=== PATIENT | male | born 1985 | race American Indian/Alaskan Native ===

== ENCOUNTER 2017-08-23 18:35 | Emergency (ER) | payer OTHER ==
--- NOTE | 2017-08-23 22:02 | XRay Report ---
FINAL REPORT PROCEDURE: XR HAND 3+V LT TECHNIQUE: Three views of the left hand are obtained HISTORY: left pinky finger injury with dislocation, poss fx COMPARISON: No prior studies are available for comparison. FINDINGS: No fracture or dislocation is seen. No arthritic changes are seen. Mild soft tissue swelling is seen. IMPRESSION: No fracture is seen.
--- NOTE | 2017-08-23 22:12 | Emergency Department Report ---
ED Upper Extremity Inj HPI - General Chief Complaint: Extremity Injury, Upper Stated Complaint: LEFT HAND PINKY FINGER DISLOCA Time Seen by Provider: 08/23/17 22:04 Source: patient Mode of arrival: Ambulatory Limitations: No Limitations - History of Present Illness Complaint: Injury to:: left (4TH DIGIT PROXIMAL MCP JOINT DISLCATION), finger (LEFT 4TH DIGIT) -: Sudden, hour(s) (FFEW) Other Extremity Injury: Fingers: Left (4TH) Other Injuries: none Severity scale (0 -10): 9 Improves With: immobilization Worsens With: movement of extremity Context: direct blow (WHILE PLAYING BASKETBALL) Associated Symptoms: other (PAIN) Treatments Prior to Arrival: NSAIDS (MOTRIN 400MG PO AT THE [facility]) - Related Data Allergies Allergy/AdvReac Type Severity Reaction Status Date / Time No Known Allergies Allergy Unverified 08/23/17 18:45 ED Review of Systems ROS: Stated complaint: LEFT HAND PINKY FINGER DISLOCA Other details as noted in HPI Constitutional: denies: chills, fever Eyes: denies: eye pain, eye discharge, vision change ENT: denies: ear pain, throat pain Respiratory: denies: cough, shortness of breath, wheezing Cardiovascular: denies: chest pain, palpitations Endocrine: no symptoms reported Gastrointestinal: denies: abdominal pain, nausea, diarrhea Genitourinary: denies: urgency, dysuria Musculoskeletal: denies: back pain, joint swelling, arthralgia Skin: denies: rash, lesions Neurological: denies: headache, weakness, paresthesias Psychiatric: denies: anxiety, depression Hematological/Lymphatic: denies: easy bleeding, easy bruising ED Past Medical Hx - Past Medical History Previous Medical History?: No Additional medical history: jaw broken - Surgical History Past Surgical History?: Yes Additional Surgical History: umbilical hernia repair, jaw surgery with wiring - Family History Family history: no significant - Social History Smoking Status: Former Smoker Substance Use Type: Alcohol, Non Opiate Pain ED Physical Exam - General Limitations: No Limitations General appearance: alert, in distress - Head Head exam: Present: atraumatic, normocephalic - Eye Eye exam: Present: normal appearance, EOMI. Absent: scleral icterus, conjunctival injection, periorbital swelling - Respiratory Respiratory exam: Present: normal lung sounds bilaterally - Cardiovascular Cardiovascular Exam: Present: regular rate, normal rhythm, normal heart sounds. Absent: systolic murmur, diastolic murmur - GI/Abdominal GI/Abdominal exam: Present: soft - Rectal Rectal exam: Present: deferred - Extremities Exam Extremities exam: Present: tenderness, joint swelling - Expanded Upper Extremity Exam Left Shoulder Exam: Present: normal inspection, full ROM Forearm Wrist exam: Present: full ROM Hand Wrist exam: Present: normal inspection, full ROM Hand L/R Front: 1 - Positive: other (DISLOCATION) Neuro motor exam: Present: wrist extension intact ED Course Vital Signs 08/23/17 18:45 Temperature 98.8 F Pulse Rate 67 Respiratory 18 Rate Blood Pressure 133/94 O2 Sat by Pulse 100 Oximetry - Orthopedic Joint Reduction Joint #1 Consent Obtained: emergent situation Time Out Performed: No Side: left Joint Reduction Location: finger (4TH MCP JOINT) Analgesia: none Technique Used: traction/counter-traction Post-Reduction Neuro Exam: intact Post-Reduction Vascular Exam: intact Post Reduction X-Ray Obtained: Yes (NORMAL NO FRACTURE , NO DISLOCATION) Post Reduction X-Ray Results: reduced Critical care attestation.: If time is entered above; I have spent that time in minutes in the direct care of this critically ill patient, excluding procedure time. ED Disposition Clinical Impression: Finger dislocation Qualifiers: Encounter type: initial encounter Qualified Code(s): S63.259A - Unspecified dislocation of unspecified finger, initial encounter Disposition: TO HOME OR SELFCARE Is pt being admited?: No Does the pt Need Aspirin: No Condition: Stable Instructions: Finger Dislocation (ED) Additional Instructions: DISPOSITION BACK TO [facility] Referrals: PRIMARY CARE, [Primary Care Provider] - 3-5 Days
[2017-08-23] MEDS ORDERED: TYLENOL PO ONE (22:16)
[2017-08-23] MEDS ORDERED: MOTRIN PO ONE (22:16)
[2017-08-23 22:34] VITALS: BP 136/92
== END 2017-08-23 22:32 | disposition home or self-care (01) ==
LOC: ED 18:35
DX: S63.265A Dislocation of metacarpophalangeal joint of left ring finger, initial encounter (principal); Z87.891 Personal history of nicotine dependence; Z98.890 Other specified postprocedural states; W21.05XA Struck by basketball, initial encounter; Y93.67 Activity, basketball; Y99.9 Unspecified external cause status; Y92.39 Other specified sports and athletic area as the place of occurrence of the external cause